=== PATIENT | male | born 1980 | race Caucasian/White ===

== ENCOUNTER 2018-04-01 10:24 | Outpatient (CLI) | payer OTHER | END 2018-04-01 10:35 | disposition home or self-care (01) | LOC: RAD 10:24 | DX: R07.89 Other chest pain (principal) ==

== ENCOUNTER 2018-04-03 11:07 | Outpatient (CLI) | payer OTHER | END 2018-04-03 17:00 | disposition home or self-care (01) | LOC: MRI 11:07 | DX: M54.2 Cervicalgia (principal); M50.320 Other cervical disc degeneration, mid-cervical region, unspecified level | CPT/HCPCS: 72141 ==